=== PATIENT | male | born 1955 | race Two or more races ===

== ENCOUNTER 2021-01-11 05:35 | Emergency (ER) | payer MEDICAID, OTHER ==
[~2021-01-11] VITALS: Ht 182.9 cm; Wt 90.7 kg
[2021-01-11] MEDS ORDERED: CLINDAMYCIN 600MG IV 50 ML IV ONE (06:45)
[2021-01-11 07:53] LABS: Basophils # (auto) 0.1 10 ^3/uL (0-0.2); Eosinophils # (auto) 0.1 10 ^3/uL (0-0.8); Lymphocytes # (auto) 2.2 10 ^3/uL (0.4-5.4)
[2021-01-11 07:55] LABS: Basophils % (auto) 0.7 % (0.0-2.0); Eosinophils % (auto) 0.4 % (0.0-7.0); Hematocrit 51.2 % (41.0-53.0); Hemoglobin 17.8 g/dL (13.5-17.5); Lymphocytes % (auto) 13.3 % (10.0-50.0); Mean Corpuscular Hemoglobin 30.8 pg (28.0-32.0); Mean Corpuscular Hgb Conc. 34.7 g/dL (32.0-36.0); Mean Corpuscular Volume 88.9 fL (80.0-100.0); Monocytes # (auto) 1.1 10 ^3/uL (0-1.3); Monocytes % (auto) 6.4 % (0.0-12.0); Neutrophils % (auto) 79.2 % (37.0-80.0); Nucleated Red Blood Cells % 0.5 %; Red Blood Cells 5.76 10^6/uL (4.5-5.90); Red Cell Distribution Width 13.1 % (11.8-14.3); White Blood Cell 16.4 10^3/uL (4.4-10.8)
[2021-01-11 08:15] LABS: Albumin 4.3 g/dL (3.4-5.0); Calcium 10.2 mg/dL (8.5-10.1); Potassium 4.3 mmol/L (3.5-5.1)
[2021-01-11 08:20] LABS: BUN/Creatinine Ratio 19.2; Bilirubin, Total 1.5 mg/dL (0.2-1.0); Total Protein 9.3 g/dL (6.4-8.2)
[2021-01-11] MEDS ORDERED: HEPARIN 1,000 UNITS/ml 1ML VIAL IV ONE (11:30)
[2021-01-11 12:21] LABS: INR 1.1 (0.9-1.15); Partial Thromboplastin Time 20.4 sec (23.0-31.2)
[2021-01-11] MEDS ORDERED: HYDROcodone-ACET 5/325MG TAB PO ONE (12:30)
[2021-01-11] MEDS ORDERED: MORPHINE SULFATE INJECTION 2 MG/ML SYRG IV ONE (12:30)
[2021-01-11] MEDS ORDERED: HEPARIN DRIP/D5W 100UNITS/ML 250 ML IV SCH (13:00)
[2021-01-11 17:00] VITALS: BP 122/57
== END 2021-01-11 16:35 | disposition short-term general hospital (02) ==
LOC: ER 05:35 → EDBD 05:35 → ER 16:35
DX: I77.9 Disorder of arteries and arterioles, unspecified (principal); D72.829 Elevated white blood cell count, unspecified
CPT/HCPCS: 36415; 73700; 80053; 85025; 85610; 85652; 85730; 93926; 96365; 96366; 96375; 99285; J1644; J2270; J3490